=== PATIENT | female | born 1990 | race Asian ===

== ENCOUNTER 2016-10-16 21:05 | Emergency (ER) | payer SELFPAY ==
[~2016-10-16] VITALS: Ht 154.9 cm; Wt 61.7 kg
[2016-10-16] MEDS ORDERED: AMPH20CA3 PO (21:15)
[2016-10-16 21:32] LABS: APPEARANCE,URINE Clear (CLEAR); BILIRUBIN,URINE Negative (NEGATIVE); BLOOD, URINE Large Ery/uL (NEGATIVE); COLOR,URINE Yellow (YELLOW); KETONES,URINE Negative (NEGATIVE); LEUKOCYTE ESTERASE ,URINE Moderate (NEGATIVE); NITRITE, URINE Negative (NEGATIVE); PH,URINE 8.5 (5.0-8.0); PROTEIN,URINE 30 mg/dl (NEGATIVE); UGLUCOSE Negative (NEGATIVE); UROBILINOGEN,URINE 0.2 EU/dL (0.2)
[2016-10-16 21:39] LABS: PREGNANCY TEST URINE QUAL NEGATIVE (NEGATIVE)
[2016-10-16 21:45] LABS: BACTERIA,URINE Few /HPF (None Seen); SQUAMOUS EPITHELIAL CELL,UR Few /HPF (None Seen); URINE AMORPHOUS URATE Few /HPF (None Seen); WBC,URINE TOO NUMEROUS TO COUN /HPF (0-3)
[2016-10-16] MEDS ORDERED: IBUPROFEN 400 MG TABLET ONE (21:51)
--- NOTE | 2016-10-16 21:54 | NUR ---
MEDICATED ORDERED. FRIEND AT BEDSIDE.
[2016-10-16] MEDS ORDERED: IBUPROFEN 400 MG TABLET PO ONE (22:00)
[2016-10-16] MEDS ORDERED: ACETAMINOPHEN 325 MG TABLET ONE (22:37)
[2016-10-16] MEDS ORDERED: ACETAMINOPHEN 325 MG TABLET PO ONE (23:00)
[2016-10-16 23:37] VITALS: BP 113/65
--- NOTE | 2016-10-16 23:38 | NUR ---
Patient discharged to home in stable condition. Written and verbal after care instructions given. Patient verbalizes understanding of instruction. ambulatory with a steady gait
== END 2016-10-16 23:38 | disposition home or self-care (01) ==
LOC: ER 21:08
DX: R30.0 Dysuria (principal); R50.9 Fever, unspecified
CPT/HCPCS: 81001; 84703; 87076; 87086; 87186; 99284; A4606; Z7610; 81000-TC

== ENCOUNTER 2016-10-20 15:32 | Emergency (ER) | payer SELFPAY ==
[~2016-10-20] VITALS: Ht 154.9 cm; Wt 61.7 kg
[~2016-10-20 15:32] MED LIST: AMPH20CA3 PO
--- NOTE | 2016-10-20 15:50 | NUR ---
Presents self to ed for headache with nausea and vomiting x today. Patient is aao4. Appears in no apparent distress. Respiration even and unlabored. vss
--- NOTE | 2016-10-20 15:50 | NUR ---
DR ROSSI AT BEDSIDE FOR EVAL.
[2016-10-20] MEDS ORDERED: KETOROLAC TROMETHAMINE INJ 30 MG/ML VIAL IV ONE (16:30)
[2016-10-20] MEDS ORDERED: ONDANSETRON HCL/PF - ER 4 MG/2 ML VIAL IV ONE (16:30)
[2016-10-20] MEDS ORDERED: ONDANSETRON HCL/PF 4 MG/2 ML VIAL ONE (16:31)
[2016-10-20] MEDS ORDERED: KETOROLAC TROMETHAMINE INJ 30 MG/ML VIAL ONE (16:31)
[2016-10-20 16:32] LABS: APPEARANCE,URINE Clear (CLEAR); BILIRUBIN,URINE Negative (NEGATIVE); BLOOD, URINE Trace-intact Ery/uL (NEGATIVE); COLOR,URINE Yellow (YELLOW); KETONES,URINE Negative (NEGATIVE); LEUKOCYTE ESTERASE ,URINE Negative (NEGATIVE); NITRITE, URINE Negative (NEGATIVE); PROTEIN,URINE Negative (NEGATIVE); UGLUCOSE Negative (NEGATIVE)
[2016-10-20 16:36] LABS: BASOPHILS % (AUTO) 0.3 % (0.0-2.0); EOSINOPHILS % (AUTO) 0.2 % (0.0-6.0); HEMATOCRIT 34 % (33-45); HEMOGLOBIN 11.5 g/dL (11.5-14.8); LYMPHOCYTES # (AUTO) 1.7 /CMM (0.8-4.8); LYMPHOCYTES % (AUTO) 17.5 % (20.0-44.0); MEAN CORPUSCULAR HEMOGLOBIN 30 PG (26.0-33.0); MEAN CORPUSCULAR HGB CONC 34 g/dl (31.0-36.0); MEAN CORPUSCULAR VOLUME 90 fL (82-100); MONOCYTES # (AUTO) 1.1 /CMM (0.1-1.30); MONOCYTES % (AUTO) 10.7 % (2.0-12.0); NEUTROPHILS # (AUTO) 7.2 /CMM (1.8-8.9); NEUTROPHILS % (AUTO) 71.3 % (43.0-81.0); PLATELET COUNT (AUTO) 320 /CMM (150-450); RDW COEFFICIENT OF VARIATION 11.6 (11.5-15.0)
[2016-10-20 16:50] LABS: BACTERIA,URINE Rare /HPF (None Seen); SQUAMOUS EPITHELIAL CELL,UR Few /HPF (None Seen); WBC,URINE NONE SEEN /HPF (0-3)
[2016-10-20] MEDS ORDERED: CEFTRIAXONE 1GM BAG (ER ONLY) 1 GM/50 ML PIGGYBACK IV ONE (17:00)
[2016-10-20] MEDS ORDERED: CEFTRIAXONE 1GM BAG (ER ONLY) 50 ML IV ONE (17:04)
[2016-10-20 17:05] LABS: ALBUMIN 3.1 g/dL (3.4-5.0); BILIRUBIN,TOTAL 0.4 mg/dL (0.2-1.0); CALCIUM, SERUM 8.1 mg/dL (8.5-10.1); CREATININE 0.7 mg/dL (0.6-1.3); POTASSIUM 3.1 mmol/L (3.5-5.1); TOTAL PROTEIN, SERUM 7.2 g/dL (6.4-8.2)
[2016-10-20 18:05] VITALS: BP 114/75
--- NOTE | 2016-10-20 18:27 | NUR ---
IV removed. Catheter intact and site benign. Pressure and 4x4 applied to site. No bleeding noted.Patient discharged to home in stable condition. Written and verbal after care instructions given. Patient verbalizes understanding of instruction.
== END 2016-10-20 18:30 | disposition home or self-care (01) ==
LOC: ER 15:44
DX: R51 Headache (principal); R11.2 Nausea with vomiting, unspecified
CPT/HCPCS: 36415; 70450-TC; 80053-TC; 81000-TC; 84702-TC; 85025-TC; 87086-TC; A4606; J0696; J1885; J2405; Z7610